=== PATIENT | male | born 1995 | race Two or more races ===

== ENCOUNTER 2020-09-23 10:30 | Emergency (ER) | payer OTHER ==
[2020-09-23 10:47] VITALS: BP 136/98; PULSE 71; TEMP 98.5; BMI 25.1
--- OUTSIDE RECORDS SUMMARY | 2020-09-23 10:51 | XMS ---
:1995 Author Organization [facility] Care Team Providers Name Role Phone Alvarez Khan DO Unavailable Troy Khan DO Unavailable Troy Khan DO Unavailable Bill, A DO Unavailable Bill, A DO Unavailable Catalina Meraz MD Unavailable Unavailable Catalina Meraz MD Unavailable Unavailable Catalina Meraz MD Unavailable Unavailable Hurtado, E Unavailable Unavailable Hurtado, E Unavailable Unavailable PCP Unavailable Unavailable Re-disclosure Warning The records that you are about to access may contain information from federally- assisted alcohol or drug abuse programs. If such information is present, then the following federally mandated warning applies: This information has been disclosed to you from records protected by federal confidentiality rules (42 CFR part 2). The federal rules prohibit you from making any further disclosure of this information unless further disclosure is expressly permitted by the written consent of the person to whom it pertains or as otherwise permitted by 42 CFR part 2. A general authorization for the release of medical or other information is NOT sufficient for this purpose. The Federal rules restrict any use of the information to criminally investigate or prosecute any alcohol or drug abuse patient.The records that you are about to access may contain highly sensitive health information, the redisclosure of which is protected by Article 27-F of the [place] Public Health law. If you continue you may haveaccess to information: Regarding HIV / AIDS; Provided by facilities licensed or operated by the [facility] Office of Mental Health; or Provided by the [facility] Office for People With Developmental Disabilities. If such information is present, then the following [facility] mandated warning applies: This information has been disclosed to you from confidential records which are protected by state law. State law prohibits you from making any further disclosure of this information without the specific written consent of the person to whom it pertains, or as otherwise permitted by law. Any unauthorized further disclosure in violation of state law may result in a fine or retirement sentence or both. A general authorization for the release of medical or other information is NOT sufficient authorization for further disclosure. Allergies and Adverse Reactions Type Description Substance Reaction Status Data Source(s ) Drug allergy codeine codeine itchy Active [place] [facility] allergy NKA No known allergies Active Asce nsion [place] - (situation) [facility] Encounters Encounter Providers Location Date Indications Data Source(s ) Emergency Attender: Abhi Pina/Angel 04/18/2020 [place] HurtadoAdmitter: Abhi 12:32:00 PM EDT [facility] Hurtado - 04/18/2020 [facility], 02:15:00 PM EDT [facility] Patient discharged. Emergency Attender: Alvarez ACC-ACC 04/17/2020 12:33:00 PM [place] Khan DOAdmitter: EDT - 04/17/2020 [facility] Alvarez Khan DO 01:51:[address] [facility] Patient discharged. Emergency Attender: Reid Toth 03/16/2020 10:07:00 AM [place] Meraz MDAdmitter: EDT - 03/16/2020 [facility] Mathews Kt 01:27:00 PM EDT [facility], MDReferrer: REQUEST PCP Maggie hatfield Patient discharged. Emergency Attender: Reid ANC-ER 03/16/2020 10:07:00 AM [place] Meraz MDAdmitter: EDT - 03/16/2020 [facility] Meraz 01:27:00 PM EDT [facility], MDReferrer: REQUEST PCP Maggie hatfield Medications Medication Brand Start Product Dose Route Administrative Pharmacy [facility] Indications Reaction Description Data Name Date Form Instructions Instructions Source(s) Voltaren 75 .0 By complet 75 mg = 1 [place] mg oral 2019 Mouth ed tab(s), PO [place] es - enteric 01:07: (oral), bid, Ou r Lady coated 00 PM # 20 tab(s), Of [place] tablet EDT Maintenance, Memor ial Pharmacy: [id number], 1 tab(s) PO (oral) bid Voltaren 75 .0 By complet 75 mg = 1 [place] mg oral 2019 Mouth ed tab(s), PO [place] es - enteric 01:07: (oral), bid, Ou r Lady coated 00 PM # 20 tab(s), Of L [facility] tablet EDT [id number], 1 tab(s) PO (oral) bid Insurance Providers Payer name Policy type Policy ID Covered Covered green party's Policy P edwige / Coverage green party ID relationship to [place] [facility] ormation type [place] MEDICAID [id number] [facility] [id number] A [id number] [place] [id number] U [employer] [facility] [id number] Problems, Conditions, and Diagnoses Code Display Name Description Problem Type Effective Dates Data Source(s) Y929 Unspecified [address] Unspecified place Diagnosis 04/18/2020 [place] or not applicable or not applicable 12:32:00 PM EDT [place] - Khai [facility], [facility] Y939 Activity, Activity, Diagnosis 04/18/2020 [place] unspecified unspecified 12:32:00 PM EDT [place] - Khai Santillany [facility], [facility] [id number] Fall in (into) Fall in (into) Diagnosis 04/18/2020 [facility] [facility] shower or empty shower or empty 12:32:00 PM EDT [place] - Our bathtub, initial bathtub, initial [place] Of [facility] encounter encounter [facility] [id number] Contusion of left Contusion of left Diagnosis 04/18/2020 [place] front wall of front wall of 12:32:00 PM EDT Arleen rdes - Our thorax, initial thorax, initial [facility] encounter encounter [facility] FALL EVALUATION FALL EVALUATION Diagnosis 04/18/2020 Asce nsion LEFT ARM AND BACK LEFT ARM AND BACK 12:32:00 PM EDT [place] - Our INJURY INJURY [facility] [id number] Pleurodynia Pleurodynia Diagnosis 04/18/2020 [place] 12:32:00 PM EDT [place] - [facility] FALL EVAL L SIDE FALL EVAL L SIDE Diagnosis 04/17/2020 [place] PAIN PAIN 12:33:00 PM EDT [place] - [facility] [id number] Proc/trtmt not Proc/trtmt not Diagnosis 04/17/2020 [facility] crd out d/t pt lv crd out d/t pt lv 12:33:00 PM EDT [place] - Our bef seen by [facility] bef seen by [facility] [place] Of [facility], [facility] [id number] Personal history Personal history Diagnosis 03/16/2020 As cension of urinary of urinary 10:07:00 AM EDT [place] - Our calculi calculi [facility] N201 Calculus of Calculus of Diagnosis 03/16/2020 [place] ureter ureter 10:07:00 AM EDT [place] - [facility], [facility] ABD PAIN ABD PAIN Diagnosis 03/16/2020 [place] 10:07:00 AM EDT [place] - [facility] R109 Unspecified Unspecified Diagnosis 03/16/2020 [place] abdominal pain abdominal pain 10:07:00 AM EDT L ourdes - [facility] Surgeries/Procedures Procedure Description Date Indications Data Source(s) ROUTINE VENIPUNCTURE ROUTINE VENIPUNCTURE 03/16/2020 [place] Eklsy 12:00:00 AM - [facility] EDT [facility] ONDANSETRON HCL ONDANSETRON HCL 03/16/2020 [place] INJECTION INJECTION 12:00:00 AM - [facility][1], [facility] BLOOD COUNT COMPLETE COMPLETE CBC W/AUTO 03/16/2020 [place] AUTO&AUTO DIFRNTL WBC DIFF WBC 12:00:00 AM - [facility] COUNT [facility][1], [facility] ASSAY OF TROPONIN ASSAY OF TROPONIN 03/16/2020 Asc[facility] gisselle [place] QUANT QUANT 12:00:00 AM - [facility][1], [facility] THROMBOPLASTIN TIME THROMBOPLASTIN TIME 03/16/2020 A scension [place] PARTIAL PARTIAL 12:00:00 AM - [facility][1], [facility] EMERGENCY DEPT VISIT EMERGENCY DEPT VISIT 03/16/2020 [place] 12:00:00 AM - [facility][1], [facility] C-REACTIVE PROTEIN C-REACTIVE PROTEIN 03/16/2020 Asc ension [place] 12:00:00 AM - [facility][1], [facility] LOCM 200-299MG/ML LOCM 200-299MG/ML 03/16/2020 Asc[facility] gisselle [place] IODINE,1ML IODINE,1ML 12:00:00 AM - [facility][1], [facility] ASSAY OF LACTIC ACID ASSAY OF LACTIC ACID 03/16/2020 [place] 12:00:00 AM - [facility][1], [facility] ASSAY OF AMYLASE ASSAY OF AMYLASE 03/16/2020 [facility] on [place] 12:00:00 AM - [facility][1], [facility] URINE CULTURE/COLONY URINE CULTURE/COLONY 03/16/2020 [place] COUNT COUNT 12:00:00 AM - [facility][1], [facility] PROTHROMBIN TIME PROTHROMBIN TIME 03/16/2020 [facility] [place] 12:00:00 AM - [facility][1], [facility] Morphine sulfate Morphine sulfate 03/16/2020 [facility] [place] injection injection 12:00:00 AM - [facility][1], [facility] TX/PRO/DX INJ NEW DRUG TX/PRO/DX INJ NEW DRUG 03/16/2020 [place] ADDON ADDON 12:00:00 AM - [facility] ASSAY OF MAGNESIUM ASSAY OF MAGNESIUM 03/16/2020 Asc ension [place] 12:00:00 AM - [facility] ASSAY OF LIPASE ASSAY OF LIPASE 03/16/2020 [place] 12:00:00 AM - [facility] HYDRATE IV INFUSION HYDRATE IV INFUSION 03/16/2020 A scension [place] ADD-ON ADD-ON 12:00:00 AM - [facility] CT ABD & PELV CT ABD & PELV 03/16/2020 [place] Arleen rdes W/CONTRAST W/CONTRAST 12:00:00 AM - [facility] URINALYSIS AUTO URINALYSIS AUTO 03/16/2020 [place] W/SCOPE W/SCOPE 12:00:00 AM - [facility] COMPREHEN METABOLIC COMPREHEN METABOLIC 03/16/2020 A scension [place] PANEL PANEL 12:00:00 AM - [facility] THER/PROPH/DIAG INJ IV THER/PROPH/DIAG INJ IV 03/16/2020 [place] PUSH PUSH 12:00:00 AM - [facility] Results ID Date Data Source [id number] 04/21/2020 10:37:12 PM EDT [place] Arleen rdes - [facility], LOTUS PruittHisrachelle SourcePatientChi ef ComplaintSlipped and fell in tub yesterday. Patient states that he landed on left side.Reports leftsided mid back pain and rib pain. Denies shortness of breath , but states painincreases withinpiration.History of Present Illnes sComplaining of left lateral rib pain since yesterday after he fell in theshower aga inst theside of the tub. And is worse with movement and inspiration better at rest. He did not sustainany other injury. This happened yesterday and he states the rachel n has seemedto increase. Hedid not his head or lose consciousness. He denies neck p ain cough shortnessof breath chestpain abdominal pain nausea vomiting change in bowel or bladder numbnesstingling weakness ofextremitiesReview of SystemsIs present illness all other systems negativeProblems and Past Medical HistoryOngoingCalculus of distal right ureterHistoricalNo qualifying dataHistoriesSocialAlcoholAlcohol Use De nies., 03/16/2020Substance UseMarijuana, 03/16/2020Tobacco/NicotineNever (less th an 100 in lifetime) Use:., 03/16/2020FamilyProcedureNo qualifying d mike available.History NotesAllergiescodeine (itchy)Home MedicationsNo active medicat ionsEDVital Signs Last Charted Initial Resp Rate 16 (APRIL 18 12:3 5) 16 (APRIL 18 12:) SBP 116 (APRIL 18 116 (APRIL 18 12:35) 12:35) DBP 79 (APRIL 18 12:35) 79 (APRIL 18 12: 35) SpO2 97 (APRIL 18 12:35) 97 (APRIL 18 12:35) Weight 85.1 (M 12:35) Height 177.8 (APRIL 18 12:) BMI 26.9 (APRIL 18 12:35) Physical ExamAlert and oriented male in no distress. Skin is pale warm dry good tu rgor.HEENT normocephalicatraumatic. Cervical spine nontender range of motion normal. Lungs clearescalation chelle or current wheezes. Heart regular rate and rhythm. Abdomen softpositive bowel sounds. Extremities are without edema neuro is g rossly intact.Lateral ribs tender to palpation there is no ecchymosis crepitu s or bonydeformity noted.ER MedicationsMotrin, 800 mg= 1 tab(s), PO (oral), NowPerCOCet 5/325, 1 tab(s), PO (oral), NowDiagnosticsXR Ribs 2 Views Le ft: XR Ribs 2 ViewsLeft (04/18/20)XR Spine Thoracolumbar 2 Views: XRSpine Thoracolu mbar 2 Views (04/18/20)Cardiology ResultsNo qualifying data available.Diagnostic Int erpretationXR Ribs 2 Views Left 04/18/2020 13:40 EDTXR Spine Thoracolumbar 2 Views 04/18/2020 13:38 EDTED CoursePatient was given pain medication rested comfortably and was feeling better.Diagnosis and ImpressionFall Contusion left ribsPatien t Education/Follow UpPractice deep breathing. Rest. Motrin 803 times a day as needed . Follow-upprimary care nextweek. Return to ER if increasing pain shortness of breat h cough or fever.This document was authenticated by Maribel Waller PA RPA on 04/18/2020 01:57 PMSent for Co-authentication by Abhi Hurtado DO DO Co-authenticated on04/18/2020 08:39 PMSent for Co-authentication by Kt HODGE, Baldev Arnold MD Co-authenticated on04/21/2020 10:37 PM Name Value Range Interpretation Code Description Data [facility] rce(s) Supporting Document(s ) ID Date Data Source [id number] 04/18/2020 01:40:21 PM EDT [place] Arleen melvin - [facility], I nv EXAM:XR RIBS 2 VIEWS LEFT ORDERING PROV IDER:ANGELICA Waller PACLINICAL HISTORY:Status post fall to the left one day prior.COMPARISON:None.TECHNIQUE: 4 views of the left ribs. FINDINGS: The left silvestre ng is well expanded. The left hemidiaphragm is within normallimits. No blunting of t he left costophrenic angle. No airspace infiltrates.No evidence of pneumothorax. The left cardiomediastinal silhouette is within normal limits. The mediastinalcon tours are within normal limits. The osseous structures are unremarkable. IMPRESSION: No abnormalities of the left ribs. This document has been authenticated by Katherine Fish MD on 04/18/2020 1:38PM. Thank you for referring your patient to [facility]. Name Value Range Interpretation Code Description Data Tana rce(s) Supporting Document(s ) ID Date Data Source [id number] 04/18/2020 01:38:41 PM EDT [place] Arleen melvin - [facility], [place] EXAM:XR SPINE THORACOLUMBAR 2 VIEWS ORDE RING PROVIDER:ANGELICA Waller PACLINICAL HISTORY: Status post fall one day priorC OMPARISON STUDY: CT abdomen/pelvis on 03/16/2020TECHNIQUE: 2 views of the thor acolumbar spine. FINDINGS:There are 5 non rib bearing lumbar vertebral bodies. The us ual lumbar lordosis is preserved. Usual thoracic kyphosis is preserved.No sublux ation seen. There is no scoliosis.No vertebral body height loss. No displaced fractures of the posteriorelements. The bony neural foramina are patent.Disc heights are maintained. No endplate osteophytes or sclerosis visualized.There are no suspic ious lytic or sclerotic lesions.Perivertebral soft tissues are normal. IMPRESSION:1. Unremarkable thoracolumbar spine radiographs. This document has been authenticated by Ganesh Fish MD on 04/18/2020 1:36PM. Thank you for referring your patient to [facility]. Name Value Range Interpretation Code Description Data Tana rce(s) Supporting Document(s ) ID Date Data Source [id number] 03/17/2020 09:15:30 AM EDT [place] Arleen melvin - [facility], I LOTUS MclainHISRACHELLE SOURCE:History i s from patient I reviewed the nurse's notes and agree except forwhere as noted below .CHIEF COMPLAINT:Abdominal painHISTORY OF PRESENT ILLNESS:24-year-old of right low er quadrant abdominal pain. Sudden onset this morningjust prior toarrival. Kami nuous. Severe. Cannot characterize. No history of priorsimilar episodes. Nobur chris frequency urgency. No diarrhea constipation nausea vomiting. Denyingfe mack or chills.Onset at rest. No suspicious foods. History of prior kidney stones REVIEW OF SYSTEMS:Review of Systems is as per HPI. Remainder of systems reviewed and n egative.PROBLEM LIST/PAST MEDICAL HISTORY:OngoingNo qualifying dataHistori calNo qualifying data History of prior kidney stones PROCEDURE/SURGICAL HISTORY:Denied HOME MEDICATIONS:No qualifying data availableALLERGIES:NKASOCIAL HISTORY:Rodríguez s not smoke drink or use drugsFAMILY HISTORY:Fhx reviewed and noncontributory except as noted above.PHYSICAL EXAM:VITALS AND MEASUREMENTS:T: 97.9 F (Tempora l Artery) T: 36.6 C (Temporal Artery) TMIN: 36.6C (Temporal Artery)TMAX: 97.9 F (Temporal Artery) HR: 73 RR: 20 BP: 150/71 SpO2: 99%WT: 86.8 kg BMI: 27.5 PHYSICAL EXAMINATION:VITAL SIGNS: Reviewed. GENERAL: Well-developed well -nourished man who appears he stated age. [id number]-tb-[id number].HEAD: Normoce phalic/atraumatic.EYES: Pupils equal round reactive to light and accommodation..EAR S: No fluid from ears or noseMOUTH: Moist noninjectedNECK: Soft supple no JVD HJR. CHEST: No tenderness or crepitus symmetric expansion with respiration.LUNGS clear to auscultation percussion without wheezes or cracklesCARDIAC: Regular rate and rhythm . S1 and S2, without murmurs, gallops, or rubs.EXTREMITIES no clubbing cyanosis or edemaVASCULAR: . Peripheral pulses normal and equal in all extremities.ABDOMEN: Po sitive right lower quadrant tenderness with guarding no rebound.MUSCULOSKELETAL: rem ainder of extremities grossly normal.NEUROLOGIC EXAM: Alert and orient ed x 3. No focal sensory or strengthdeficits. Speech normal.Follows commands.PSYCHIATR IC: Appropriate affect good insight and judgment.SKIN: Warm dry no icterus.HEME LYMPH AND IMMUNE no petechiae adenopathy ecchymosis LAB RESULTS:CBC LATEST RESULTS WBC 03/16/20 10.7 High 10:50 RBC 03/16/20 4.57 Low 10:50 Hgb 03/16/20 13.9 Low 10:50 Hct 03/16/20 41.0 10:50 MCV 03/16/20 89.7 10:50 MCH 03/16/20 30.3 10:50 MCHC 03/16/20 33.8 10:50 MPV 7.7 10:50 RDW 03/16/20 13 .7 10:50 Platelet 03/16/20 276 10:50 DIFFERENTIAL LATEST RESULTS Neutrophils, absolute 03/16/20 5.5 10:50 Lymphocytes, absolute 03/16/20 3.9 10:50 Monocytes, absolute 03/16/20 1 .2 High 10:50 Eosinophils, absolute 03/16/20 0. 1 10:50 Basophils, absolute 03/16/20 0.0 10:50 Neutrophils, auto 03/16/20 51.4 10:50 Lymphocytes, auto 03/16/20 36.2 10:50 Mo nocytes, auto 03/16/20 10.8 10:50 Eosinophils, a uto 03/16/20 1.2 10:50 Basophils, auto 0.4 10:50 COAGULATION LATEST RESUL TS PT 03/16/20 10.9 10:50 INR 03/16/20 1.00 10:50 APTT 03/16/20 23 Low 10:50 MACROSCOPIC L ATEST RESULTS UA Color 03/16/20 Yellow 10:48 UA Clarity 03/16/20 Clear 10:48 UA Specific Lolita 03/16/20 1.028 High 10:48 UA p H 03/16/20 6.0 10:48 UA Protein w/UC 03/16/20 1+ Abnormal 10:48 UA Glucose 03/16/20 Normal 10:48 UA Ketones 0 Trace Abnormal 10:48 UA Bilirubin 03/16/20 Negative 10:48 UA Blood w/UC 03/16/20 3+ Abnormal 10:48 UA Nitrite w/UC 03/16/20 Negat ivan 10:48 UA Leuk w/uc 03/16/20 Trace Abno rmal 10:48 UA Urobilinogen 03/16/20 2 Abn ormal 10:48 MICROSCOPIC LATEST RESULTS UA RBC 03/16/20 >182 High 10:48 UA W BC w/UC 03/16/20 7 High 10:48 UA Squamous Epithelial 03/16/20 <1 Cells 10:48 UA Mucous 0 03/16/20 3+ 10:48 ROUTINE CHEMISTRY LATEST RESUL TS Sodium Level 03/16/20 138 10:50 Potassium Level 03/16/20 3.2 Low 10:50 Chloride 03/16/20 104 10:50 CO2 03/16 23 10:50 AGAP 03/16/20 11 .0 10:50 Glucose Level. 03/16/20 158 High 10:50 BUN 03/16/20 16 10:50 Creatinine 03/16/20 0.98 10:50 GFR-AA 03/16/20 >60 10:50 GFR- SALOMÓN 03/16/20 >60 10:50 Calcium 03/16/20 9.1 10:50 Albumin Level 03/16 4.3 10:50 Total Protein 03/16/20 7. 0 10:50 Globulin 03/16/20 2.7 10:50 Alk Phos 03/16/20 75 10:50 AST 03/16/20 27 10:50 ALT 03/16/20 66 High 10:50 Bilirubin Tot al. 03/16/20 0.4 10:50 Magnesium 0 03/16/20 1.7 10:50 Amylase Level 03/16/20 33 10:50 Lipase Level 03/16/20 7 10:50 Lactic Acid Lvl 03/16/20 2.7 High 10:50 CARDIAC ENZYMES LATEST RESULTS Troponin-I 03/16/20 <0.01 10:50 IMMUNOLOGY/SEROLOGY LATEST RESULTS C-Reactive Protein. 03/16/20 0.4 10:50 DI AGNOSTIC RESULTS:CT Abd/Pelvis w/IV Only Contrast 03/16/20 11:44:32EXAM:CT ABD/PE LVIS W/IV ONLY CONTRAST ORDERING PROVIDER:MD Reid eMraz CLINICAL HISTORY:Right lower quadrant pain COMPARISON:None TECHNIQUE:CT abdomen and pelvis performe d with 80ml of Omnipaque 300 contrast andreformatted in the sagittal and coron al planes. Total DLP is 512.3 mGy-cm. FINDINGS: BASILAR CHEST: No consolidatio n, nodule or effusion. Small hiatal hernia. LIVER: No mass, enlargement or abnormal density. BILIARY TRACT: Unremarkable. SPLEEN: No mass or enlargement. PANCREAS: No mas s or inflammatory process. Normal pancreatic duct. ADRENAL GLANDS: Unremarkable. No m ass. URINARY SYSTEM: Upper pole the left kidney 6 mm simple renal cyst identified .Noother renal masses or hydronephrosis is seen. Lower pole of the left kidney two1 mm nonobstructing calculi identified. Interpolar region right kidneynonobstruc ting 2 mm calculus identified as well as lower pole the right kidneynonobstructin g 2 mm calculus present. Ureters unremarkable. 3 mm calculuswithinthe rig ht sided urinary bladder consistently with a recently passed calculus. GI TRACT: No m ass, dilation, or wall thickening. Mild diverticulosis withoutdiverticulitis. No hernia. Appendix is normal. REPRODUCTIVE SYSTEM: Prostate unremarkable PERITONEAL SPACE:No free air, free fluid, mass or adenopathy. RETROPERITONEAL SPACE: No ad enopathy, mass, aneurysm or significant vascularabnormality. BONES AND EXTRA-ABD OMINAL SOFT TISSUES: Unremarkable. No inguinal adenopathy orhernia. IMPRESSION : 3 mm calculus identified in the right side of the urinary bladder consistentwith a recently passed calculus. Appendix unremarkable. Nonobstructing tiny bilate ral renal calculi. Small hiatal hernia. Mild diverticulosis. This document has been a uthenticated by Arnold Abernathy MD on 03/16/2020 11:44AM.Thank you for referrin g your patient to [facility]. Signed By: Jodi Abernathy MD COURSE: M edication Dose Route Frequency m orphine 4 mg IV PushInjection Now Sodium Chloride 0.9% intravenous solutio 1,000 mL IV Infusion Now (NS Bolus) Injection ondansetron (Zofran) 8 mg PO (oral) DIS Now Tablet I rechecked the patient who is resting comfortably. On re-exam the patient issymptomaticallygreatly improve d. I have discussed the results of the labs/radiology as wellas the diagnosisat great length. Discussed proper home care and instructions to take the Rx asdirected. Patientunderstands to follow up with their PCP in 1-2 days. Return to ER precaution swere discussed forany new or worsening symptoms. Patient is comfortable with de cision to gohome. All questionsanswered.DIAGNOSIS AND IMPRESSI ON: DiagnosisClassification Dx Type Admitting Calculus of distal right urete r Medical DischargePLAN:Discharge to home in stable conditionFollow up with PCP in 1 to 3 days.Return to the Emergency Department if there is a change in the nature orcharacter of yoursymptoms. This docume nt was authenticated by Kt HODGE, Reid Arnold MD on 03/17/202009:15 AM Name Value Range Interpretation Code Description Data Tana rce(s) Supporting Document(s ) ID Date Data Source [id number] 03/16/2020 11:46:41 AM EDT [place] Arleen melvin - [facility], [place] EXAM:CT ABD/PELVIS W/IV ONLY CONTRASTORD ERING PROVIDER:MD Reid MerazCLINICAL HISTORY: Right lower quadrant painCOMPAR IVAN: NoneTECHNIQUE: CT abdomen and pelvis performed with 80ml of Omnipaque 300 con trast andreformatted in the sagittal and coronal planes. Total DLP is 512.3 mGy-c m.FINDINGS:BASILAR CHEST: No consolidation, nodule or effusion. Small hiatal hernia. LIVER: No mass, enlargement or abnormal density. BILIARY TRACT: Unremarkable. SP SEBASTIAN: No mass or enlargement. PANCREAS: No mass or inflammatory process. Normal mccormick creatic duct. ADRENAL GLANDS: Unremarkable. No mass. URINARY SYSTEM: Upper pole the left kidney 6 mm simple renal cyst identified.No other renal masses or hydr onephrosis is seen. Lower pole of the left kidneytwo 1 mm nonobstructing calculi id entified. Interpolar region right kidneynonobstructing 2 mm calculus ident ified as well as lower pole the right kidneynonobstructing 2 mm calculus prese nt. Ureters unremarkable. 3 mm calculuswithin the right sided urinary bladder consiste ntly with a recently passedcalculus.GI TRACT: No mass, dilation, or wall thickening. M ild diverticulosis withoutdiverticulitis. No hernia. Appendix is normal.REPRODUCTIVE SYSTEM: Prostate unremarkablePERITONEAL SPACE:No free air, free fluid, mass or a denopathy. RETROPERITONEAL SPACE: No adenopathy, mass, aneurysm or significan t vascularabnormality.BONES AND EXTRA-ABDOMINAL SOFT TISSUES: Unremarkab le. No inguinal adenopathyor hernia.IMPRESSION:3 mm calculus identifi ed in the right side of the urinary bladder consistentwith a recently passed calculu s.Appendix unremarkable. Nonobstructing tiny bilateral renal calculi.Small hiatal her gustabo. Mild diverticulosis.This document has been authenticated by Arnold Abernathy MD on 03/16/2020 11:44AM. Thank you for referring your patient to [facility]. Name Value Range Interpretation Code Description Data Tana rce(s) Supporting Document(s ) ID Date Data Source [id number] 03/16/2020 11:28:54 AM EDT [place] Arleen melvin - [facility], [facility] Name Value Range Interpretation Description Data Sup porting Code Source(s) Document(s ) Magnesium 1.7 mg/dL 1.6-2.6 [place] Kelsy - [facility] Added by Lab Reflex Rule ID Date Data Source [id number] 03/16/2020 11:24:13 AM EDT [place] Arleen rdkathleen - [facility] [place] Name Value Range Interpretation Code Description Data Supporting Source(s) Document(s ) Troponin- <0.01 <=0.04 [place] I ng/mL Kelsy - [facility] Normal: <0.04 ng/mLIschemic disease: 0.04-0.10 ng/mLConsistent with AMI: >0.10 ng/mL ID Date Data Source [id number] 03/16/2020 11:15:43 AM EDT [place] Arleen rdkathleen - [facility] [place] Name Value Range Interpretation Code Description Data Supporting Source(s) Document(s ) Lipase 7 unit/L <=60 [place] Level Kelsy - [facility] ID Date Data Source [id number] 03/16/2020 11:15:45 AM EDT [place] Arleen rdkathleen - [facility] Name Value Range Interpretation Code Description Data Tana rce(s) Supporting Document(s ) GFR-SALOMÓN >60 >=60 [place] mL/min/1.7 [place] - [facility] 3m2 [facility] eGFR added on by Discern Expert.* GFR-NA A has been calculated for Non- Americans, GFR-AA has been calculated fo r Americans. They are based on the standardized IDMS creatinine value and d o not include the patient weight. If the patient's weight is not withThis estimat ion applies to patients with stable renal function only.An average GFR of greater than or equal to 60 mL/min/1.73 square meters is suggestive of normal kidney function. An average GFR for 3 months or more of 30-59 is suggestive of stage 3 kidney disease. An average GFR for 3 months or more of 15-29 is suggestive of stage 4 kidney disease. An average GFR for 3 months or more of less than 15 is suggestive of stage 5 kidney disease. GFR-AA >60 mL/min/1.73m2 >=60 [facility] [place] - [facility] ID Date Data Source [id number] 03/16/2020 11:15:43 AM EDT [place] Arleen rdes - [facility] Name Value Range Interpretation Code Description Data Tana rce(s) Supporting Document(s ) C-Reactiv 0.4 mg/dL <=0.9 [place] e Kelsy - [facility] ID Date Data Source [id number] 03/16/2020 11:15:43 AM EDT [place] Arleen rdes - [facility] Name Value Range Interpretation Description Data Sup porting Code Source(s) Document(s ) Sodium Level 138 136-145 [place] mmol/L Kelsy - [facility], [facility] Potassium 3.2 3.5-5.1 Below low normal [place] Level mmol/L Kelsy - [facility], [facility] Chloride 104 98-110 [place] mmol/L Kelsy - [facility] CO2 23 20-30 [place] mmol/L Kelsy - [facility] AGAP 11.0 4.0-14.0 [place] mEq/L Kelsy - [facility], [facility] Glucose Level. 158 70-99 Above high normal [facility] mg/dL Kelsy - [facility], [facility] BUN 16 mg/dL 9-21 [place] Kelsy - [facility] Creatinine 0.98 0.72-1.2 [place] mg/dL 5 K[place] - [facility] Calcium 9.1 8.4-10.2 [place] mg/dL Kelsy - [facility] Total Protein 7.0 6.0-8.0 [place] gm/dL Kelsy - [facility], [facility] Globulin 2.7 1.5-3.8 [place] gm/dL Kelsy - [facility], [facility] Albumin Level 4.3 3.5-5.0 [place] gm/dL Kelsy - [facility], [facility] Bilirubin 0.4 0.2-1.2 [place] Total. mg/dL Kelsy - [facility], [facility] AST 27 5-34 [place] unit/L Kelsy - [facility], [facility] Alk Phos 75 40-150 [place] unit/L Kelsy - [facility], [facility] ALT 66 11-55 Above high normal [place] unit/L Kelsy - [facility], [facility] ID Date Data Source [id number] 03/16/2020 11:15:43 AM EDT [place] Arleen rdes - [facility] Name Value Range Interpretation Description Data Sup porting Code Source(s) Document(s ) Amylase 33 unit/L 25-125 [place] Level Kelsy - [facility], [facility] ID Date Data Source [id number] 03/16/2020 11:10:40 AM EDT [place] Arleen rdes - [facility] Name Value Range Interpretation Description Data Sup porting Code Source(s) Document(s ) Lactic 2.7 0.5-2.2 Above high normal [place] Acid Lvl mmol/L Kelsy - [facility], [facility] ID Date Data Source [id number] 03/16/2020 11:09:25 AM EDT [place] Arleen rdes - [facility] Name Value Range Interpretation Code Description Data Tana rce(s) Supporting Document(s ) APTT 23 24-33 Below low normal [place] second(s) Kelsy - [facility], [facility] Suggested therapeutic range for unfracti onated Heparin is 2 to 2.5 times the mean normal value. Levels below 60 seconds ma y indicate insufficient anticoagulant.For therapeutic monitoring of various direct thrombin inhibitors, please refer to Micromedex or LexiComp on the [facility] In tranet. ID Date Data Source [id number] 03/16/2020 11:09:24 AM EDT [place] Arleen rdes - [facility] Name Value Range Interpretation Code Description Data Tana rce(s) Supporting Document(s ) PT 10.9 9.0-12.5 [place] second(s) Kelsy - [facility], [facility] INR 1.00 0.90-1.23 [place] Kelsy - [facility], [facility] International normalization ratio:Less i ntense coumadin therapy range: 2.0 - 3.0More intense coumadin therapy range: 2.5 - 3.5 ID Date Data Source [id number] 03/16/2020 10:57:18 AM EDT [place] Arleen rdes - [facility] Name Value Range Interpretation Description Data Sup porting Code Source(s) Document(s ) WBC 10.7 K/uL 4.0-10.0 Above high normal [place] Kelsy - [facility], [facility] RBC 4.57 4.60-6.20 Below low normal [place] Million/m Kelsy - [facility] Hgb 13.9 14.0-18.0 Below low normal [place] gm/dL Kelsy - [facility], [facility] Hct 41.0 % 40.0-54.0 [place] Kelsy - [facility], [facility] MCV 89.7 fL 82.0-98.0 [place] Kelsy - [facility], [facility] MCH 30.3 pg 26.0-33.0 [place] Kelsy - [facility], [facility] MCHC 33.8 32.0-36.0 [place] gm/dL Kelsy - [facility], [facility] RDW 13.7 % 11.4-14.4 [place] Kelsy - [facility], [facility] Platelet 276 K/mcL 150-400 [place] Kelsy - [facility], [facility] MPV 7.7 fL 7.4-10.4 [place] Kelsy - [facility], [facility] ID Date Data Source [id number] 03/16/2020 10:57:17 AM EDT [place] Arleen rdes - [facility] Name Value Range Interpretation Description Data Sup porting Code Source(s) Document(s ) Neutrophils, 51.4 % 40.0-80.0 [place] auto Kelsy - [facility] Neutrophils, 5.5 K/mcL 1.5-7.7 [place] absolute Kelsy - [facility] Lymphocytes, 36.2 % 15.0-40.0 [place] auto Kelsy - [facility] Lymphocytes, 3.9 K/mcL 1.5-4.0 [place] absolute Kelsy - [facility] Monocytes, 10.8 % 0.0-12.0 [place] auto Kelsy - [facility] Monocytes, 1.2 K/mcL 0.2-1.0 Above high normal [place] absolute Kelsy - [facility] Eosinophils, 1.2 % 0.0-5.0 [place] auto Kelsy - [facility] Eosinophils, 0.1 K/mcL 0.0-0.3 [place] absolute Kelsy - [facility] Basophils, 0.4 % 0.0-2.0 [place] auto Kelsy - [facility] Basophils, 0.0 K/mcL 0.0-0.1 [place] absolute Kelsy - [facility] ID Date Data Source [id number] 03/18/2020 07:31:37 AM EDT [place] Arleen rdes - [facility] Name LOTUS DE LA FUENTE hdate 1995Sex Male Age 24 yearsPatient Acct. No. [id number] cation ER OLLAttending ER Physician Reid Meraz MD CPrimary Care Physic lele PCP, REQUESTMicrobiologyS = Susceptible I = Intermediate R = Resistant N/A = Not U = UninterpretableApplicableProcedure: Culture Urine [f1] ource: U CleanCatch Body Site:Collected Date/Time: 03/16/2020 10:48 EDT Received Date/Time: 03/16/2020 11:01 EDTStart Date/Time: 03/16/2020 11:01 EDT Free Text Source:Ordering Physician: Reid Meraz MDFINAL REPORTSFinal Report [] Verified Date/Time: 03/18/2020 07:31 EDTNo growth at 2 days.Performing Locati onsf1: This test was performed at:[facility], [address] [place] [address], [id number]- Name Value Range Interpretation Code Description Data Tana rce(s) Supporting Document(s ) ID Date Data Source [id number] 03/16/2020 10:54:38 AM EDT [place] Arleen rdes - [facility] Name Value Range Interpretation Description Data Sup porting Code Source(s) Document(s ) UA Squamous <1 /HPF 0-5 [place] Epithelial Kelsy - Cells [facility] UA WBC w/UC 7 /HPF 0-5 Above high normal [place] Kelsy - [facility] UA RBC >182 /HPF 0-2 Above high normal [place] Kelsy - [facility] UA Mucous Absent [place] Kelsy - [facility] ID Date Data Source [id number] 03/16/2020 10:50:55 AM EDT [place] Arleen rdes - [facility] Name Value Range Interpretation Description Data Sup porting Code Source(s) Document(s ) UA Color Yellow [place] Kelsy - [facility], [facility] UA Clarity Clear [place] Kelsy - [facility] UA pH 6.0 5.0-8.0 [place] Kelsy - [facility] UA Specific 1.028 1.005-1.025 Above high [place] Lolita normal Kelsy - [facility], [facility] UA Leuk w/uc Negative AB [place] Kelsy - [facility] UA Nitrite w/UC Negative [place] Kelsy - [facility], [facility] UA Blood w/UC Negative AB [place] Kelsy - [facility], [facility] UA Bilirubin Negative [place] Kelsy - [facility], [facility] UA Urobilinogen Normal AB [place] Kelsy - [facility], [facility] UA Glucose Normal [place] Kelsy - [facility], [facility] UA Ketones Negative AB [place] Kelsy - [facility], [facility] UA Protein w/UC Negative AB [place] Kelsy - [facility], [facility] Procedure Vital Signs ID Date Data Source UNK Name Value Range Interpretation Code Description Data Source(s) Body height 70.0 [in_i] 70.0 [in_i] [place] L ourdes - [facility] 1Result Comment: Result placed secondary from cm, converted to Inches Deprecated Oxygen 98 % 90-100 Normal (applies to 98 % [place] Kelsy saturation in non-numeric - [facility] Capillary blood by results) [facility], [facility] Respiratory rate 18 /min 14-20 Normal (applies to 18 /min [place] Kels[place] non-numeric - [facility] results) [facility] Systolic blood 90-140 Normal (applies to mm[Hg] As cension Kelsy pressure non-numeric - [facility] results) [facility] Heart rate 77 /min 60-100 Normal (applies to 77 /min [facility] [place] non-numeric - [facility] results) [facility] Deprecated Oxygen 96 % 90-100 Normal (applies to 96 % [place] Kelsy saturation in non-numeric - [facility] Capillary blood by results) [facility], [facility] Respiratory rate 17 /min 14-20 Normal (applies to 17 /min [place] Kels[place] non-numeric - [facility] results) [facility], [facility] Heart rate 64 /min 60-100 Normal (applies to 64 /min [facility] [place] non-numeric - [facility] results) [facility], [facility] Systolic blood 90-140 Normal (applies to mm[Hg] As cension Kelsy pressure non-numeric - [facility] results) [facility] Deprecated Oxygen 97 % 90-100 Normal (applies to 97 % [place] Kelsy saturation in non-numeric - [facility] Capillary blood by results) [facility], [facility] Respiratory rate 18 /min 14-20 Normal (applies to 18 /min [place] Kelsy non-numeric - [facility] results) [facility], [facility] Systolic blood 90-140 Normal (applies to mm[Hg] As cension K[place] pressure non-numeric - [facility] results) [facility] Heart rate 72 /min 60-100 Normal (applies to 72 /min Asc[facility] Eklsy non-numeric - [facility] results) [facility] Deprecated Oxygen 99 % 90-100 Normal (applies to 99 % [place] Kelsy saturation in non-numeric - [facility] Capillary blood by results) [facility], [facility] Respiratory rate 20 /min 14-20 Normal (applies to 20 /min [place] Kelsy non-numeric - [facility] results) [facility], [facility] Systolic blood 90-140 Above high normal mm[Hg] Asc ension Kelsy pressure - [facility] Heart rate 73 /min 60-100 Normal (applies to 73 /min [facility] [place] non-numeric - [facility] results) [facility], [facility] Body weight Measured 191 lb 6 oz 191 lb 6 oz As cension [place] - [facility] 2Result Comment: Result placed secondary from kg, converted to lbs Body height 70.0 [in_i] 70.0 [in_i] [place] L ourdes - [facility], [facility] 1Result Comment: Result placed secondary from cm, converted to Inches
[2020-09-23 12:28] LABS: THROAT:GRP A STREP ANTIGEN Negative (Negative)
--- NOTE | 2020-09-23 12:34 | PDOC ---
History of Present Illness - General Chief Complaint: Cold Symptoms Stated Complaint: COLD LIKE SYMPTOMS Time Seen by Provider: 09/23/20 10:53 History Source: Patient Exam Limitations: No Limitations - History of Present Illness Initial Comments: 09/23/20 12:31 Patient is a 24-year-old male who presents to the ED with complaint of fatigue, chills and body aches for the last 2 days. He states he is also had some upper eyelid swelling over the last few days. He denies any fevers. He denies any cough or shortness of breath. He states his throat was hurting 2 days ago but i s no longer hurting him. He has a eating and drinking okay. He states he would like to know if he is Covid. He has been drinking tea but otherwise has not been taking anything for his symptoms. He denies any past medical history or allergies to medications. Past History - Medical History Allergies/Adverse Reactions: Allergies Allergy/AdvReac Type Severity Reaction Status Date / Time No Known Allergies Allergy Verified 09/23/20 10:41 Home Medications: Ambulatory Orders No Home Medications 0 dose .ROUTE UTDICT 12/01/12 Cyclobenzaprine HCl [Flexeril -] 10 mg PO HS #7 tablet 09/11/14 Naproxen [Naprosyn -] 500 mg PO BID #30 tablet 09/11/14 COPD: No - Immunization History Immunization Up to Date: Yes - Psycho-Social/Smoking History Smoking Status: No Smoking History: Never smoked Have you smoked in the past 12 months: No Number of Cigarettes Smoked Daily: 0 Information on smoking cessation initiated: No - Substance Abuse Hx (Audit-C & DAST Scrn) How often the patient has a drink containing alcohol: Never Score: In Men: 4 or > Positive; In Women: 3 or > Positive: 0 Screen Result (Pos requires Nsg. Audit-10AR): Negative In the last yr the pt used illegal drug/Rx for NonMed reason: No Score: Yes response is considered Positive: 0 Screen Result (Positive result requires Nsg. DAST-10): Negative Review of Systems - Review of Systems Comments:: 09/23/20 12:32 - Review of Systems Able to Perform ROS?: Yes Constitutional: No: Fever, Loss of Appetite, Night Sweats, Weakness; positive: Fatigue and chills HEENTM: No: Eye Pain, Vision changes, Ear Pain, Throat Pain, Throat Swelling, Mouth Pain, Difficulty Swallowing; positive: Resolved throat pain Respiratory: No: Cough, Shortness of Breath, Wheezing, Sputum Production Cardiac (ROS): No: Chest Pain, Chest Tightness, Palpitations, Irregular Heart Beat, Edema ABD/GI: No: Nausea, Vomiting, Abdominal Pain, Diarrhea : No Dysuria, No Hematuria, No Frequency, No Urgency, No Vaginal Discharge/Pain, No Penile Discharge/Pain Musculoskeletal: No: Muscle Pain, Back Pain, Joint Pain, Muscle Weakness, Neck Pain Integumentary: No: Lesions, Rash Neurological: No: Headache, Numbness, Tingling, Weakness, Speech Difficulties *Physical Exam - Vital Signs Last Vital Signs Temp Pulse Resp BP Pulse Ox 98.5 F 71 17 136/98 100 09/23/20 10:37 09/23/20 10:37 09/23/20 10:37 09/23/20 10:37 09/23/20 10:37 - Physical Exam 09/23/20 12:32 - Physical Exam General Appearance: Nourished, Appropriately Dressed, No Distress HEENT: EOMI, Normal Voice, No Pharyngeal Erythema, No Muffled/Hoarse voice, No Tonsillar Exudate, No Tonsillar Erythema, No Nasal Congestion, No Rhinorrhea, Hearing Grossly Normal, TMs Normal, No TM Bulging, No TM Dullness, No TM Erythema; bilateral tonsillar edema right slightly greater than left without kissing tonsils. No exudates appreciated. Uvula midline and without edema. No stridor. Airway patent. Neck: Supple, No Lymphadenopathy (R), No Lymphadenopathy (L), No Rigidity, No Decreased range of motion Respiratory/Chest: Lungs Clear, Normal Breath Sounds. No Respiratory Distress, No Accessory Muscle Use Cardiovascular: Regular Rhythm, Regular Rate, S1, S2 Gastrointestinal/Abdominal: Normal Bowel Sounds, Soft. Non-tender, No Guarding, No Rebound, No Rigidity Musculoskeletal: Normal Inspection. No Decreased Range of Motion Extremity: Normal Capillary Refill, Normal Inspection Integumentary: Normal Color, Dry. No Rash Neurologic: adolescent counselor II-XII NML intact, Fully Oriented, Alert, Normal Mood/Affect, Normal Response ED Treatment Course - ADDITIONAL ORDERS Additional order review: 09/23/20 12:33 Laboratory Tests 09/23/20 11:17 COVID-19 (SALOMÓN) Pending Group A Strep Rapid Negative Medical Decision Making - Medical Decision Making 09/23/20 12:33 Assessment: Patient is a 24-year-old male with chills and fatigue for the last few days, and he also had resolved throat pain. Plan: -Strep swab performed and is negative -Covid swab sent to the -Patient given Covid counseling in the ED -We will call him with the results of the Covid testing once it becomes available -He should go home and quarantine until he has further instruction. He understands and agrees with this treatment plan and is stable for discharge. He has been instructed on returning to the ED for any worsening symptoms. Discharge - Discharge Information Problems reviewed: Yes Clinical Impression/Diagnosis: Chills Fatigue Qualifiers: Fatigue type: other Qualified Code(s): R53.83 - Other fatigue Condition: Stable Disposition: HOME - Follow up/Referral - Patient Discharge Instructions Patient Printed Discharge Instructions: SJR - Coronavirus Instructions, R- [facility] COVID-19 Isolation Protocol Additional Instructions: If you become symptomatic: Take Tylenol 650 mg every 6 hours as needed for fever or pain. You may take Robitussin or other [id number] cough syrup. Follow the dosing instructions on the bottle. Warm tea, honey, and salt water gargles may help your symptoms. Please take precautions and self quarantine for 2 weeks and follow-up with your primary care doctor and the Department of Health. Return to the nearest emergency department for shortness of breath, difficulty breathing, chest pain, or if you have any changes in your symptoms. - Post Discharge Activity
== END 2020-09-23 13:26 | disposition home or self-care (01) ==
LOC: JER 10:30
DX: R53.83 Other fatigue (principal)
CPT/HCPCS: 87070; 87880; 99284-25; C9803; U0003